=== PATIENT | female | born 1975 | race Caucasian/White ===

== ENCOUNTER → 2020-08-01 14:19 | Outpatient (BNVA) | payer OTHER, SELFPAY | PROVIDERS: Family Provider Family Medicine; Visit Provider Obstetrics & Gynecology | DX: N89.8 Other specified noninflammatory disorders of vagina (principal) | CPT/HCPCS: 88175 ==

== ENCOUNTER → 2020-08-05 14:03 | Outpatient (BNVA) | payer OTHER, SELFPAY | PROVIDERS: Family Provider Family Medicine; Visit Provider Nurse Practitioner Family | DX: Z11.59 Encounter for screening for other viral diseases (principal); Z20.828 Contact with and (suspected) exposure to other viral communicable diseases; J06.9 Acute upper respiratory infection, unspecified | CPT/HCPCS: 87635 ==

== ENCOUNTER 2020-08-19 10:26 | Outpatient (CLI) | payer OTHER, SELFPAY ==
--- NOTE | 2020-08-19 10:30 | MM_ITS ---
WS: [id number] BILATERAL DIGITAL DIAGNOSTIC MAMMOGRAM MAMMOGRAPHY WITH CAD CLINICAL INFORMATION: Screening and evaluation of a right breast nodule HISTORY: Right breast lump x2 months 6:00 position. History of prior right breast cyst removal. COMPARISON: and TECHNIQUE: Bilateral CC, MLO, and ML views. FINDINGS: The breasts are composed of heterogeneous fibroglandular density, which can limit the detection of sm all underlying mass lesions. Palpable marker right breast near the 6:00 position posterior depth of t he chest wall. No definite mammographic abnormalities in this area. Ultrasound is pending. Dense pare nchymal tissue upper outer breasts bilaterally unchanged since 2017. Left breast is unchanged in appearance since 2017 and unremarkable. ULTRASOUND BREAST RIGHT TECHNIQUE: Ultrasound right breast focused area of concern. CLINICAL INFORMATION: Screening and evaluation of a right breast nodule FINDINGS: Ultrasound right breast at the 3 to 5:00 position. Dense underlying parenchymal tissue in the area of concern 5 cm from the nipple. No evidence of cystic or solid mass. Dense parenchyma tissue has a juan jose ign appearance. Hypoechoic lesion at the 4:00 position measuring 4.2 x 3.3 x 5.9 mm has a solid appearance and is shoaib picious. This lesion is taller than wide and indeterminant. RECOMMEND FURTHER EVALUATION WITH ULTRASO UND GUIDED BIOPSY. MM/[place] [id number] IMPRESSION: BI-RADS: 4-Suspicious Finding-Biopsy Should Be Considered FOLLOW UP: US Guided Biopsy Recommended
--- NOTE | 2020-08-19 11:00 | US_ITS ---
WS: [id number] BILATERAL DIGITAL DIAGNOSTIC MAMMOGRAM MAMMOGRAPHY WITH CAD CLINICAL INFORMATION: Screening and evaluation of a right breast nodule HISTORY: Right breast lump x2 months 6:00 position. History of prior right breast cyst removal. COMPARISON: and TECHNIQUE: Bilateral CC, MLO, and ML views. FINDINGS: The breasts are composed of heterogeneous fibroglandular density, which can limit the detection of sm all underlying mass lesions. Palpable marker right breast near the 6:00 position posterior depth of t he chest wall. No definite mammographic abnormalities in this area. Ultrasound is pending. Dense pare nchymal tissue upper outer breasts bilaterally unchanged since 2017. Left breast is unchanged in appearance since 2017 and unremarkable. ULTRASOUND BREAST RIGHT TECHNIQUE: Ultrasound right breast focused area of concern. CLINICAL INFORMATION: Screening and evaluation of a right breast nodule FINDINGS: Ultrasound right breast at the 3 to 5:00 position. Dense underlying parenchymal tissue in the area of concern 5 cm from the nipple. No evidence of cystic or solid mass. Dense parenchyma tissue has a juan jose ign appearance. Hypoechoic lesion at the 4:00 position measuring 4.2 x 3.3 x 5.9 mm has a solid appearance and is shoaib picious. This lesion is taller than wide and indeterminant. RECOMMEND FURTHER EVALUATION WITH ULTRASO UND GUIDED BIOPSY. US/US breast RT limited* [id number] IMPRESSION: BI-RADS: 4-Suspicious Finding-Biopsy Should Be Considered FOLLOW UP: US Guided Biopsy Recommended
== END 2020-08-19 10:27 | disposition home or self-care (01) ==
LOC: RADSHAW 10:28
PROVIDERS: Visit Provider Obstetrics & Gynecology
DX: N63.14 Unspecified lump in the right breast, lower inner quadrant (principal)
CPT/HCPCS: 76642; 77066

== ENCOUNTER → 2020-08-27 10:38 | Outpatient (BNVA) | payer OTHER, SELFPAY | PROVIDERS: PCP Family Medicine; Visit Provider Family Medicine | DX: Z13.6 Encounter for screening for cardiovascular disorders (principal); Z23 Encounter for immunization; B07.9 Viral wart, unspecified | CPT/HCPCS: 80053; 80061; 85025 ==

== ENCOUNTER 2020-09-02 13:17 | Outpatient (CLI) | payer OTHER, SELFPAY ==
--- NOTE | 2020-09-02 14:00 | US_ITS ---
WS: [id number] ULTRASOUND-GUIDED RIGHT BREAST BIOPSY HISTORY: Right breast mass at 4 o'clock COMPARISON: 08/19/2020 and 03/26/2011 Procedure, risks and complications are explained to the patient. Medications are reviewed. Consent is obtained. The mass in the RIGHT breast is localized with ultrasound. Mass localized to 4:00 at 2 cm from the ni pple. Skin is cleansed with ChloraPrep and anesthetized with 1% buffered lidocaine. Small dermatome i s made. Under sterile conditions mass is biopsied with a 14-gauge Achieve needle. Multiple core biops ies are performed. Material placed in formalin and sent to pathology for review. No complications enc ountered. Breast tissue marker (Bard ultrasound enhanced ribbon): Single. Patient left the radiology suite with no complications. Patient is instructed to return to [facility] concerns. US/[place] [id number] IMPRESSION: 1. Uncomplicated core needle biopsy RIGHT breast mass at 4:00, 2 cm from the n ipple. PATHOLOGY: Fibroadenoma with benign fibrocystic changes. No malignancy. RECOMMENDATION: Return to annual screening mammogram.
== END 2020-09-02 13:18 | disposition home or self-care (01) ==
LOC: RAD 13:20
PROVIDERS: PCP Family Medicine; Visit Provider Obstetrics & Gynecology
DX: N63.14 Unspecified lump in the right breast, lower inner quadrant (principal); D24.1 Benign neoplasm of right breast
CPT/HCPCS: 19083; 88305

== ENCOUNTER → 2021-02-20 09:51 | Outpatient (BNVA) | payer OTHER, SELFPAY | PROVIDERS: PCP Family Medicine; Visit Provider Obstetrics & Gynecology | DX: Z30.431 Encounter for routine checking of intrauterine contraceptive device (principal); N89.8 Other specified noninflammatory disorders of vagina | CPT/HCPCS: 87210 ==

== ENCOUNTER → 2021-06-03 11:24 | Outpatient (BNVA) | payer OTHER, SELFPAY | PROVIDERS: PCP Family Medicine; Visit Provider Nurse Practitioner Family | DX: Z20.822 Contact with and (suspected) exposure to COVID-19 (principal) | CPT/HCPCS: 87635 ==

== ENCOUNTER → 2021-11-13 11:41 | Outpatient (BNVA) | payer OTHER, SELFPAY | PROVIDERS: PCP Family Medicine; Visit Provider Registered Nurse Neonatal Intensive Care | DX: N39.0 Urinary tract infection, site not specified (principal) | CPT/HCPCS: 81000 ==

== ENCOUNTER → 2022-08-04 09:48 | Outpatient (BNVA) | payer OTHER, SELFPAY | PROVIDERS: PCP Family Medicine; Visit Provider Family Medicine Adult Medicine | DX: M79.89 Other specified soft tissue disorders (principal); S49.92XA Unspecified injury of left shoulder and upper arm, initial encounter; V03.00XA Pedestrian on foot injured in collision with car, pick-up truck or van in nontraffic accident, initial encounter; Y93.02 Activity, running | CPT/HCPCS: 73060 ==

== ENCOUNTER 2022-08-18 15:37 | Outpatient (CLI) | payer OTHER, SELFPAY ==
--- NOTE | 2022-08-18 15:43 | MM_ITS ---
WS: [id number] BILATERAL 3D TOMOSYNTHESIS DIGITAL SCREENING MAMMOGRAPHY WITH CAD CLINICAL INFORMATION: SCREEN HISTORY: Screening mammogram. No current complaints. COMPARISON: August 19, 2020 TECHNIQUE: Bilateral CC and MLO views. FINDINGS: The breasts are composed of heterogeneous fibroglandular density tissue, which can limit the detectio n of small underlying mass lesions. Dense asymmetric density upper outer LEFT breast measuring 9 mm i s progressed compared to previous. This may represent overlapping breast tissue but indeterminant. Re commend LEFT breast diagnostic mammography and ultrasound if persistent. This is best appreciated on the cc view. Biopsy clip RIGHT breast. RIGHT breast is otherwise unchanged. MM/[place] [id number] IMPRESSION: BI-RADS: 0-Incomplete: Need additional imaging evaluation FOLLOW UP: Need Additional Imaging Recommend LEFT diagnostic mammography and ultrasound if persistent.
== END 2022-08-18 15:38 | disposition home or self-care (01) ==
LOC: RAD 15:38
PROVIDERS: PCP Family Medicine; Visit Provider Obstetrics & Gynecology
DX: Z12.31 Encounter for screening mammogram for malignant neoplasm of breast (principal)
CPT/HCPCS: 77063; 77067

== ENCOUNTER → 2023-04-30 17:14 | Outpatient (BNVA) | payer OTHER, SELFPAY | PROVIDERS: PCP Family Medicine; Visit Provider Registered Nurse Neonatal Intensive Care | DX: N39.0 Urinary tract infection, site not specified (principal) | CPT/HCPCS: 81000; 87086 ==

== ENCOUNTER → 2023-07-20 15:44 | Outpatient (BNVA) | payer OTHER, SELFPAY | PROVIDERS: PCP Family Medicine; Visit Provider Family Medicine | DX: Z13.6 Encounter for screening for cardiovascular disorders (principal) | CPT/HCPCS: 80053; 80061; 85025 ==

== ENCOUNTER → 2023-08-17 14:30 | Outpatient (BNVA) | payer OTHER, SELFPAY | PROVIDERS: PCP Family Medicine; Visit Provider Family Medicine | DX: F10.10 Alcohol abuse, uncomplicated (principal) | CPT/HCPCS: 80053 ==

== ENCOUNTER → 2023-09-16 09:40 | Outpatient (BNVA) | payer OTHER, SELFPAY | PROVIDERS: PCP Family Medicine; Visit Provider Obstetrics & Gynecology | DX: Z12.4 Encounter for screening for malignant neoplasm of cervix (principal) | CPT/HCPCS: 87624 ==

== ENCOUNTER → 2023-09-23 10:14 | Outpatient (BNVA) | payer OTHER, SELFPAY | PROVIDERS: PCP Family Medicine; Visit Provider Obstetrics & Gynecology | DX: Z30.431 Encounter for routine checking of intrauterine contraceptive device (principal) | CPT/HCPCS: 81025 ==

== ENCOUNTER 2024-08-03 12:00 | Outpatient (CLI) | payer OTHER, SELFPAY ==
--- NOTE | 2024-08-03 12:02 | MM_ITS ---
WS: [id number] Bilateral screening 3D tomosynthesis digital mammogram, 08/03/2024 12:02 PM Clinical Data: SCREENING Comparison: 08/18/2022, 08/19/2020, 08/23/2017, 12/16/2010. Findings: No spiculated masses or clustered calcifications are seen. There are no secondary signs of carcinoma . The breasts show extreme density. There is a biopsy clip in the medial aspect of the right breast. MM/MM scr tomosynthesis [id number] Impression: Negative bilateral mammogram unchanged. Recommend annual screening mammograms. BIRADS: 1 - Negative FOLLOW UP: 1 Year Follow-up DENSITY: The breasts are extremely dense, which lowers the sensitivity of mammo graphy. The CAD credit report checker was used
== END 2024-08-03 12:01 | disposition home or self-care (01) ==
LOC: RAD 12:01
PROVIDERS: PCP Family Medicine; Visit Provider Obstetrics & Gynecology
DX: Z12.31 Encounter for screening mammogram for malignant neoplasm of breast (principal); R92.333 Mammographic heterogeneous density, bilateral breasts
CPT/HCPCS: 77063; 77067

== ENCOUNTER 2024-10-02 12:30 | Day surgery (SDC) | payer OTHER, SELFPAY ==
[2024-10-02 12:44] VITALS: BP 136/90; PULSE 62; RESP 16; TEMP 36.5; O2SAT 98
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
--- NOTE | 2024-10-02 12:55 | W.PM.OPSUD ---
Surgery/Procedure H&P Update DATE OF PROCEDURE: October 02, 2024 DATE H&P PERFORMED: 09/01/24 H&P UPDATE INFORMATION: I have reviewed H&P completed within last 30 days, I have examined patient prior to procedure and No changes to prior documentation PREOP DIAGNOSIS: screening PLANNED PROCEDURE: Operation Date: 10/02/24 13:30 Proposed Procedures p Colonoscopy- 60549, G0121, Z12.11(Not Applicable) - Jori Lamb MD
[2024-10-02] MEDS: sodium chloride 0.9% 1,000 ML 30 ML IV (13:00)
[2024-10-02 13:02] LABS: OR HCG Qualitative Urine Negative (Negative)
[2024-10-02 13:43] VITALS: BP 113/72; PULSE 56; RESP 18; TEMP 36.2; O2SAT 100
--- NOTE | 2024-10-02 13:53 | ANE.PACU2 ---
Inpatient post-anesthesia follow up: Airway intact: Yes Vital signs: Temperature 97.1 F Pulse Rate 56 Respiratory Rate 18 Blood Pressure 113/72 Pulse Oximetry 100 Oxygen Delivery Me thod Room Air Oxygen Flow Rate Fraction of Inspir ed Oxygen Hydration adequate: Yes Nausea and vomiting: No Pain level: 1 Mental status: Baseline
[2024-10-02 13:54] VITALS: BP 127/82; PULSE 63; RESP 18; TEMP 36.2; O2SAT 100
== END 2024-10-02 14:17 | disposition home or self-care (01) ==
PROVIDERS: Anesthesiology; PCP Physician Assistant; Visit Provider Student in an Organized Health Care Education/Training Program
PROC: 0DJD8ZZ Inspection of Lower Intestinal Tract, Via Natural or Artificial Opening Endoscopic (ICD-10-PCS; CPT 45378; principal; 2024-10-02 13:30)
DX: Z12.11 Encounter for screening for malignant neoplasm of colon (principal)
CPT/HCPCS: 45378; 81025; J2704; J7030

== ENCOUNTER → 2024-10-16 17:50 | Outpatient (BNVA) | payer OTHER, SELFPAY | PROVIDERS: PCP Physician Assistant; Visit Provider Nurse Practitioner Family | DX: R39.9 Unspecified symptoms and signs involving the genitourinary system (principal) | CPT/HCPCS: 81000 ==

== ENCOUNTER → 2024-11-30 13:54 | Outpatient (BNVA) | payer OTHER, SELFPAY | PROVIDERS: PCP Physician Assistant; Visit Provider Podiatrist Foot & Ankle Surgery | DX: M79.671 Pain in right foot (principal); M21.611 Bunion of right foot; M77.8 Other enthesopathies, not elsewhere classified | CPT/HCPCS: 73630 ==

== ENCOUNTER → 2025-07-25 15:50 | Outpatient (BNVA) | payer OTHER, SELFPAY | PROVIDERS: PCP Family Medicine | DX: R39.9 Unspecified symptoms and signs involving the genitourinary system (principal) | CPT/HCPCS: 81000; 87086 ==

== ENCOUNTER → 2025-08-14 13:52 | Outpatient (BNVA) | payer OTHER, SELFPAY | PROVIDERS: PCP Family Medicine; Visit Provider Family Medicine | DX: N89.8 Other specified noninflammatory disorders of vagina (principal) | CPT/HCPCS: 81513; 87481; 87491; 87591; 87661 ==

== ENCOUNTER → 2025-08-28 08:20 | Outpatient (BNVA) | payer OTHER, SELFPAY | PROVIDERS: PCP Family Medicine; Visit Provider Obstetrics & Gynecology | DX: N95.1 Menopausal and female climacteric states (principal); R53.83 Other fatigue | CPT/HCPCS: 80053; 82306; 82670; 83002; 84146; 84402; 84403; 84443; 85025 ==